=== PATIENT | male | born 1935 | race Caucasian/White ===

== ENCOUNTER 2016-06-16 11:02 | Emergency (ER) | payer MEDICARE, BC ==
[2016-06-16 12:01] VITALS: BP 139/66
--- NOTE | 2016-06-16 13:57 | EDM.PDOC ---
ED HISTORY OF PRESENT ILLNESS - General Chief Complaint: Respiratory Problem Stated Complaint: WEAKNESS,LOW ON O2 Time Seen by Provider: 06/16/16 11:43 Source of Information: Reports: Patient, RN notes reviewed - History of Present Illness INITIAL COMMENTS - FREE TEXT/NARRATIVE: 80 year old male brought in by daughter with concern about cough that he has had for about 1 week, somewhat worse yesterday and today. Productive of mostly clear phlegm. Has had nasal and sinus congestion. No fever, possible chills. More weak and dizzy this AM than usual. No vomiting or diarrhea. Hx of renal failure on dialysis. His last run was 3 days ago. He was due for run at time of eval. - Related Data Allergies/ADRs: Allergies Allergy/AdvReac Type Severity Reaction Status Date / Time cefatrizine [Cefatrizine] Allergy Hives Verified 06/16/16 11:38 ceftriaxone sodium Allergy Hives Verified 06/16/16 11:38 [From Rocephin] prednisone Allergy Swelling Verified 06/16/16 11:38 Home Meds: Home Meds Albuterol Sulfate [Proair Respiclick] 2 puff INH Q4HR PRN 03/21/15 [History] Atenolol 50 mg PO DAILY 03/21/15 [History] Budesonide/Formoterol [Symbicort 160-4.5 MCG] 2 puff INH BID 03/21/15 [History] Furosemide 80 mg PO DAILY 03/21/15 [History] Simvastatin [Zocor] 40 mg PO BEDTIME 03/21/15 [History] Tamsulosin [Flomax] 0.4 mg PO DAILY 03/21/15 [History] Tiotropium [Spiriva HandiHaler] 1 cap INH DAILY 03/21/15 [History] Topiramate [Topamax] 50 mg PO BID 03/21/15 [History] amLODIPine [Norvasc] 2.5 mg PO BEDTIME 03/21/15 [History] cloNIDine [Catapres] 0.1 mg PO BID 03/21/15 [History] Ascorbic Acid [Vitamin C] 500 mg PO DAILY 05/25/15 [History] Calcium Carbonate/Vitamin D3 [Calcium 500 + Vit D 400] 1 tab PO TID 05/25/15 [ History] Cholecalciferol (Vitamin D3) [Vitamin D3] 1,000 units PO DAILY 05/25/15 [History ] Multivitamin [Multi-Day Vitamins] 1 each PO DAILY 05/25/15 [History] Niacin [Niacin ER] 500 mg PO DAILY 05/25/15 [History] Venlafaxine [Effexor XR] 37.5 mg PO DAILY 10/31/15 [History] Calcium Acetate 2 tab PO TID 03/28/16 [History] Dicyclomine HCl [Bentyl] 10 mg PO TID 03/28/16 [History] Finasteride 1 tab PO DAILY 03/28/16 [History] Fish Oil/DHA/EPA [Fish Oil 1,200 MG] 1 cap PO DAILY 03/28/16 [History] Furosemide [Lasix] 1 tab PO DAILY PRN 03/28/16 [History] Lactobacillus Acidophilus [Acidophilus Lactobacillus] 1 cap PO DAILY 03/28/16 [ History] Tobramycin Sulf/Dexamethasone [IJP: Tobradex Ophth Susp] 1 drop EYEBOTH BEDTIME PRN 03/28/16 [History] Warfarin [Coumadin] 5 mg PO DAILY 03/28/16 [History] Omeprazole 20 mg PO DAILY 03/31/16 [History] Levofloxacin [Levaquin] 500 mg PO Q24H #7 tablet 06/16/16 [Rx] Past Medical History HEENT History: Reports: Allergic rhinitis, Cataract Other HEENT History: poor vision Cardiovascular History: Reports: High cholesterol, Hypertension Respiratory History: Reports: COPD, Sleep apnea Gastrointestinal History: Reports: GERD Genitourinary History: Reports: Dialysis, Prostate disorder, Renal disease Musculoskeletal History: Reports: Arthritis Neurological History: Reports: TIA Psychiatric History: Reports: Addiction, Depression, Other (see below) Other Psychiatric History: ETOH abuse Endocrine/Metabolic History: Reports: Diabetes, type II Hematologic History: Reports: Anemia, Other (see below) Other Hematologic History: blood clotting disorder Oncologic (Cancer) History: Reports: Lung, Prostate - Past Surgical History HEENT Surgical History: Reports: Cataract surgery, Naso-sinus surgery Musculoskeletal Surgical History: Reports: Arthroscopic knee Social & Family History - Family History Endocrine/Metabolic: Reports: Diabetes, type II Oncologic: Reports: Colon, Prostate - Tobacco Use Smoking Status *Q: Current Some Day Smoker Years of Tobacco use: 65 Packs/Tins Daily: 2 Used Tobacco, but Quit: Yes Month Tobacco Last Used: apr 2015 - Caffeine Use Caffeine Use: Reports: Coffee - Recreational Drug Use Recreational Drug Use: No ED ROS GENERAL - Review of Systems Review Of Systems: See Below Constitutional: Reports: chills. Denies: fever HEENT: Reports: Rhinitis, Sinus problem (sinsus drainage) Respiratory: Reports: Shortness of Breath, Cough, Sputum Cardiovascular: Denies: Chest pain Endocrine: Reports: fatigue GI/Abdominal: Denies: Abdominal pain, Nausea, Vomiting Musculoskeletal: Reports: back pain (chronically), muscle stiffness Neurological: Reports: Weakness (generalized). Denies: Headache, Trouble Speaking ED EXAM, GENERAL - Physical Exam Exam: See Below General Appearance: alert, no apparent distress Eye Exam: bilateral eye: PERRL Nose: normal inspection Throat/Mouth: Normal inspection, Normal oropharynx Head: No: facial swelling Neck: supple, full range of motion, other (no JVD) Respiratory/Chest: no respiratory distress. No: rales, rhonchi, wheezing, accessory muscle use Cardiovascular: regular rate, rhythm GI/Abdominal: soft, non tender. No: guarding Back Exam: No: CVA tenderness (L), CVA tenderness (R) Extremities: No: pedal edema, leg pain, increased warmth, redness Neurological: alert, oriented, no motor/sensory deficits Skin Exam: Warm, Dry, Normal color Course - Vital Signs Last Recorded V/S: Last Vital Signs Temp 97.8 F 06/16/16 11:50 Pulse 78 06/16/16 11:50 Resp 20 06/16/16 11:50 BP 139/66 06/16/16 11:50 Pulse Ox 91 L 06/16/16 11:50 - Orders/Labs/Meds Orders: Active Orders 24 hr Category Date Time Status CULTURE BLOOD [BC] Stat Lab 06/16/16 12:45 Received Labs: Laboratory Tests 06/16/16 06/16/16 06/16/16 Range/Units 12:45 12:45 12:45 WBC 9.20 H (4.23-9.07) K/mm3 RBC 2.75 L (4.63-6.08) M/mm3 Hgb 9.7 L (13.7-17.5) gm/L Hct 29.7 L (40.1-51.0) % MCV 108.0 H (79.0-92.2) fl MCH 35.3 H (25.7-32.2) pg MCHC 32.7 (32.2-35.5) g/dl RDW Std Deviation 65.7 H (35.1-43.9) fL Plt Count 189 (163-337) K/mm3 MPV 8.2 L (9.4-12.3) fl Neut % (Auto) 74.2 H (34.0-67.9) % Lymph % (Auto) 12.5 L (21.8-53.1) % [place] % (Auto) 8.8 (5.3-12.2) % Eos % (Auto) 3.9 (0.8-7.0) Baso % (Auto) 0.4 (0.1-1.2) % Neut # (Auto) 6.82 H (1.78-5.38) K/mm3 Lymph # (Auto) 1.15 L (1.32-3.57) K/mm3 [place] # (Auto) 0.81 (0.30-0.82) K/mm3 Eos # (Auto) 0.36 (0.04-0.54) K/mm3 Baso # (Auto) 0.04 (0.01-0.08) K/mm3 Manual Slide Review Abnormal smear Sodium 139 (136-145) mEq/L Potassium 4.0 (3.5-5.1) mEq/L Chloride 101 (98-107) mEq/L Carbon Dioxide 23 (21-32) mEq/L Anion Gap 19.0 H (5-15) BUN 60 H (7-18) mg/dL Creatinine 8.7 H (0.7-1.3) mg/dL Est Cr Clr Drug Dosing 7.31 mL/min Estimated GFR (MDRD) 6 (>60) mL/min BUN/Creatinine Ratio 6.9 L (14-18) Glucose 214 H (83-115) mg/dL Calcium 9.5 (8.5-10.1) mg/dL Total Bilirubin 0.2 (0.2-1.0) mg/dL AST 5 L (15-37) U/L ALT 11 L (16-63) U/L Alkaline Phosphatase 49 (46-116) U/L Troponin I < 0.017 (0.00-0.056) ng/mL C-Reactive Protein 4.0 H* (<1.0) mg/dL B-Natriuretic Peptide 271 H (0-100) pg/mL Total Protein 6.7 (6.4-8.2) g/dl Albumin 3.3 L (3.4-5.0) g/dl Globulin 3.4 gm/dL Albumin/Globulin Ratio 1.0 (1-2) - Re-Assessments/Exams Free Text/Narrative Re-Assessment/Exam: 06/16/16 13:54 WBC just above 9,000, CRP 4.0, afebrile, he does have mild infiltrate R base, question early mild pneumonia vs atelectesis. Will send him for his dilalysis run now, awaiting Radiologist report, will probably let him go home on outpatient levaquin if he is well enough for that after dialysis. 06/16/16 15:22. Radiologist report on CXR indicates area of atelectesis R base , no Radiologist concern for pneumonia. Have prescribed levaquin 500 mg daily for 7 days. Discharge instr. as documented. Departure - Departure Time of Disposition: 14:44 Disposition: Home, Self-Care 01 Condition: fair Clinical Impression: Bronchitis Prescriptions: Levofloxacin [Levaquin] 500 mg PO Q24H #7 tablet Instructions: Acute Bronchitis Referrals: Jed Avitia MD [Primary Care Provider] - Forms: ED Department Discharge Additional Instructions: The Radiologist does not see any sign of Pneumonia on your CXR today. I do think we need to start you on levaquin antibiotic for bronchitis and to try keep this from turning into a pneumonia. Rest, start the levaquin today after your dialysis run. Continue that once daily for 7 days. Follow up with your regular medical provider in about 3 to 4 days for recheck if possible, call for appt. Return to ED if symptoms are worsening and you feel you may need to be in the hospital. - My Orders Last 24 Hours: My Active Orders 06/16/16 12:45 CULTURE BLOOD [BC] Stat - Assessment/Plan Last 24 Hours: My Active Orders 06/16/16 12:45 CULTURE BLOOD [BC] Stat
--- NOTE | 2016-06-16 14:15 | CR ---
Chest: Portable view of the chest was obtained. Comparison: Previous chest CT of 06/10/16 and chest x-ray of 06/13/15. Slight atelectasis noted within both lung bases. Scarring noted within the right upper lung. Lungs otherwise are clear. Emphysematous change is present. Heart size and mediastinum are within normal limits. Widening of the superior mediastinum is seen which is stable and due to tortuous great vessels. Impression: 1. Mild bibasilar atelectasis and emphysematous change. Nothing acute is identified. Diagnostic code #2
== END 2016-06-16 15:10 | disposition home or self-care (01) ==
LOC: JD.ED 11:02
DX: J40 Bronchitis, not specified as acute or chronic (principal); E78.00 Pure hypercholesterolemia, unspecified; J44.9 Chronic obstructive pulmonary disease, unspecified; K21.9 Gastro-esophageal reflux disease without esophagitis; I12.9 Hypertensive chronic kidney disease with stage 1 through stage 4 chronic kidney disease, or unspecified chronic kidney disease; N18.9 Chronic kidney disease, unspecified; F32.9 Major depressive disorder, single episode, unspecified; E11.9 Type 2 diabetes mellitus without complications; D64.9 Anemia, unspecified; D68.9 Coagulation defect, unspecified; F17.200 Nicotine dependence, unspecified, uncomplicated; Z85.46 Personal history of malignant neoplasm of prostate; Z85.118 Personal history of other malignant neoplasm of bronchus and lung; Z88.8 Allergy status to other drugs, medicaments and biological substances; Z79.899 Other long term (current) drug therapy; Z86.73 Personal history of transient ischemic attack (TIA), and cerebral infarction without residual deficits; Z99.2 Dependence on renal dialysis; R06.02 Shortness of breath
CPT/HCPCS: 36415; 71010; 71010-26; 80053; 83880; 84484; 85025; 86140; 87040; 87804; 99283; 99285

== ENCOUNTER 2016-06-29 19:42 | Emergency (ER) | payer MEDICARE, BC ==
[2016-06-29] MEDS ORDERED: HYDROmorphone 0.5 MG/0.5 ML Syringe IVPUSH ONE ×2 (20:03→22:10)
[2016-06-29] MEDS ORDERED: Metoclopramide 10 MG/2 ML SDV IVPUSH ONE (20:03)
--- NOTE | 2016-06-29 20:08 | EDM.PDOC ---
ED HPI GI/ABDOMINAL - General Chief Complaint: Abdominal Pain Stated Complaint: LOWER ABDOMINAL PAIN Time Seen by Provider: 06/29/16 20:03 Source of Information: Reports: Patient, Family (spouse) History Limitations: Reports: No limitations - History of Present Illness INITIAL COMMENTS - FREE TEXT/NARRATIVE: 80-year-old male presents the ED with gradually worsening left lower quadrant abdominal pain. First noted sharp steady intermittent left lower quadrant abdominal pain yesterday afternoon about 1530 hours. Since that time the pain is been coming more frequently and is now constant. It hurts to walk it hurts to cough it hurts to deep breathe. Appetite remains fair. No nausea vomiting. Bowel movement was normal today . He didn't recognize any blood in the stool. It did not relieve the pain either. He does have a history of diverticulitis. Has a history of previous renal colic as well. Pain is well localized to the left lower quadrant by the patient. He holds onto this area when he walks or coughs. No previous abdominal surgeries.Has had endovascular graft in his aorta and iliac arteries for aortic abdominal aneurysm . Symptom Onset Date: 06/28/16 Symptom Onset Time: 15:30 Timing/Duration: Reports: Hour(s):, Gradual onset Location: LLQ Quality: Reports: cramping, fullness, stabbing (Intermittently quite stabbing and sharp.) Severity: moderate (States at rest pain is a 5 but it can get up to a 10) Improves with: Reports: other ( minutes very sharp and stabbing. nothing seems to make a difference) Worsens with: Reports: sitting up, other (Coughing and deep breathing make it worse) Context: Denies: sick contact, bad/questionable food, out of country travel, recent surgery, recent trauma, lifting, activity/exercise, other Associated Symptoms: Reports: constipation, diarrhea (Had severe diarrhea about 3 weeks ago that took a week to get better.). 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: Other (see below) (No) - Related Data Allergies/ADRs: Allergies Allergy/AdvReac Type Severity Reaction Status Date / Time cefatrizine [Cefatrizine] Allergy Hives Verified 06/16/16 11:38 ceftriaxone sodium Allergy Hives Verified 06/16/16 11:38 [From Rocephin] prednisone Allergy Swelling Verified 06/16/16 11:38 Home Meds: Home Meds Albuterol Sulfate [Proair Respiclick] 2 puff INH Q4HR PRN 03/21/15 [History] Atenolol 50 mg PO DAILY 03/21/15 [History] Budesonide/Formoterol [Symbicort 160-4.5 MCG] 2 puff INH BID 03/21/15 [History] Simvastatin [Zocor] 40 mg PO BEDTIME 03/21/15 [History] Tamsulosin [Flomax] 0.4 mg PO BEDTIME 03/21/15 [History] Tiotropium [Spiriva HandiHaler] 1 cap INH DAILY 03/21/15 [History] Topiramate [Topamax] 50 mg PO BID 03/21/15 [History] amLODIPine [Norvasc] 2.5 mg PO BEDTIME 03/21/15 [History] cloNIDine [Catapres] 0.1 mg PO BID 03/21/15 [History] Ascorbic Acid [Vitamin C] 500 mg PO DAILY 05/25/15 [History] Calcium Carbonate/Vitamin D3 [Calcium 500 + Vit D 400] 1 tab PO TID 05/25/15 [ History] Cholecalciferol (Vitamin D3) [Vitamin D3] 1,000 units PO DAILY 05/25/15 [History ] Multivitamin [Multi-Day Vitamins] 1 each PO DAILY 05/25/15 [History] Niacin [Niacin ER] 500 mg PO BEDTIME 05/25/15 [History] Venlafaxine [Effexor XR] 37.5 mg PO DAILY 10/31/15 [History] Calcium Acetate 2 tab PO TID 03/28/16 [History] Dicyclomine HCl [Bentyl] 10 mg PO TID 03/28/16 [History] Finasteride 1 tab PO DAILY 03/28/16 [History] Fish Oil/DHA/EPA [Fish Oil 1,200 MG] 1,200 mg PO DAILY 03/28/16 [History] Furosemide [Lasix] 80 mg PO DAILY 03/28/16 [History] Lactobacillus Acidophilus [Acidophilus Lactobacillus] 1 cap PO DAILY 03/28/16 [ History] Warfarin [Coumadin] 5 mg PO DAILY 03/28/16 [History] Omeprazole 20 mg PO DAILY 03/31/16 [History] Albuterol Sulfate [Proair Hfa] 2 puff INH Q4H PRN 06/29/16 [History] Atrovent Nasal 2 spray INH BID PRN 06/29/16 [History] Calcium Acetate [PhosLo] 667 mg PO TID 06/29/16 [History] Darbepoetin Pieter in Polysorbat [Aranesp] 60 mcg INJECT Q28D 06/29/16 [History] Flaxseed 1 cap PO DAILY 06/29/16 [History] Vitamin B Complex 1 each PO DAILY 06/29/16 [History] Past Medical History HEENT History: Reports: Allergic rhinitis, Cataract, Macular degeneration Other HEENT History: poor vision Cardiovascular History: Reports: Heart murmur, High cholesterol, Hypertension, SOB on exertion Respiratory History: Reports: COPD, Sleep apnea (Does use a CPAP machine nightly.) Gastrointestinal History: Reports: Chronic diarrhea, GERD, Other (see below) ( Nonspecific colitis.) Genitourinary History: Reports: BPH, Chronic renal insuffiency (He has an AV fistula in place for dialysis but has not yet started dialysis.), Dialysis ( Goes to dialysis Wednesdays and Fridays since December last year.), Prostate disorder, Renal disease Musculoskeletal History: Reports: Arthritis, Back pain, chronic, Osteoarthritis Neurological History: Reports: TIA, Other (see below) (Lt sided subdural hematoma requiring surgical drainage. Lt parietal lobe.) Psychiatric History: Reports: Addiction, Depression, Other (see below) Other Psychiatric History: ETOH abuse Endocrine/Metabolic History: Reports: Diabetes, type II Hematologic History: Reports: Anemia, Other (see below) (Assessment multiple DVTs and pulmonary emboli. He states she's been on Coumadin for nearly 60 years. He also has an inferior vena caval filter.) Other Hematologic History: blood clotting disorder Oncologic (Cancer) History: Reports: Lung, Prostate - Past Surgical History HEENT Surgical History: Reports: Cataract surgery, Naso-sinus surgery Cardiovascular Surgical History: Reports: Vascular surgery (Endovascular procedure for abdominal aortic aneurysm about 3 years ago.) Musculoskeletal Surgical History: Reports: Arthroscopic knee, Hip replacement ( Lt), Knee replacement Social & Family History - Family History Endocrine/Metabolic: Reports: Diabetes, type II Oncologic: Reports: Colon, Prostate - Tobacco Use Smoking Status *Q: Current Every Day Smoker Years of Tobacco use: 65 Packs/Tins Daily: 0.5 Used Tobacco, but Quit: Yes Month Tobacco Last Used: apr 2015 - Caffeine Use Caffeine Use: Reports: Coffee - Recreational Drug Use Recreational Drug Use: No - Living Situation & Occupation Living situation: Reports: Occupation: retired ED [employer] GENERAL - Review of Systems Review Of Systems: See Below Constitutional: Denies: fever, chills, malaise, weakness, fatigue, decreased appetite, weight loss HEENT: Reports: Other Respiratory: Reports: Shortness of Breath (Has poor vision due to macular degeneration.), Wheezing (2 COPD. COPD. Not on home oxygen), Cough Cardiovascular: Reports: Blood pressure problem, Dyspnea on exertion (Sometimes in the lower extremities chronically), Edema. Denies: Chest pain, Claudication , Lightheadedness, Orthopnea Endocrine: Reports: fatigue, high glucose (Has type 2 diabetes.) GI/Abdominal: Reports: Abdominal pain (Left lower quadrant see history of present illness). Denies: Constipation, Diarrhea, Decreased appetite, Difficulty swallowing, Distension, Flatus, Hematemesis, Hematochezia, Melena, Mucous in stool, Nausea, Stool incontinence, Vomiting : Reports: frequency (Nocturia x3), other Musculoskeletal: Reports: back pain, joint pain Skin: Reports: no symptoms (Knees and hips and shoulders at times) Neurological: Reports: No Symptoms Psychiatric: Reports: Depression Hematologic/Lymphatic: Reports: no symptoms Immunologic: Reports: no symptoms ED EXAM, GI/ABD - Physical Exam Exam: See Below Exam Limited By: No limitations General Appearance: alert, WD/WN, no apparent distress Eyes: bilateral: normal appearance (No jaundice) Throat/Mouth: Normal inspection, Normal lips, Normal oropharynx Head: atraumatic, normocephalic, other (As a viral that is healed well over the left anterior parietal scalp.) Neck: normal inspection, supple, non-tender, full range of motion. No: lymphadenopathy (L), lymphadenopathy (R) Respiratory/Chest: no respiratory distress, lungs clear, normal breath sounds, no accessory muscle use Cardiovascular: regular rate, rhythm, no gallop, no JVD, no rub, systolic murmur (Grade 1-2 systolic ejection murmur at the left lower sternal border.) GI/Abdominal: normal bowel sounds, soft, tenderness (Well localized left lower quadrant of the distribution of the sigmoid colon. He is tender to palpation teeth and percussion in this area suggesting peritoneal irritation. He is guarding with mild rebound tenderness.), guarding, rebound. No: rigidity, hepatomegaly, splenomegaly, hernia, mass, McBurney's sign, psoas sign, obturator sign, Rovsing's sign, Llanes's sign, aortic pulsation Back Exam: normal inspection, full range of motion. No: CVA tenderness (L), CVA tenderness (R) Extremities: normal inspection, normal capillary refill, other (Has an AV fistula from his left volar wrist to the proximal forearm that has a palpable thrill. It is being used for dialysis for the last 6 months.) Neurological: alert (Decreased range of motion of both hips and knees due to arthritic changes.), oriented, CN II-XII intact, normal cognition Psychiatric: normal affect, normal mood Skin Exam: Warm, Dry, Intact, Normal color, No rash EKG INTERPRETATION EKG Date: 06/29/16 Time: 20:30 Rhythm: NSR Rate (beats/min): 74 Avery: LAD-left axis deviation (-27) P-wave: present (First-degree AV block) QRS: normal ST-T: normal QT: prolonged (Mildly prolonged.) Course - Vital Signs Last Recorded V/S: Last Vital Signs Temp 36.2 C 06/29/16 19:53 Pulse 68 06/29/16 19:53 Resp 20 06/29/16 19:53 BP 149/76 H 06/29/16 19:53 Pulse Ox 96 06/29/16 19:53 - Orders/Labs/Meds Orders: Active Orders 24 hr Category Date Time Status EKG Documentation Completion [RC] STAT Care 06/29/16 20:09 Active Abdomen 1V Flat [CR] Stat Exams 06/29/16 20:05 Taken Abdomen Pelvis wo Cont [CT] Stat Exams 06/29/16 20:19 Taken CULTURE BLOOD [BC] Stat Lab 06/29/16 20:18 Received CULTURE BLOOD [BC] Stat Lab 06/29/16 20:30 Received Sodium Chloride 0.9% [Normal Saline] 250 ml Med 06/29/16 20:15 Active IV ASDIRECTED Blood Culture x2 Reflex Set [OM.PC] Stat Oth 06/29/16 20:04 Ordered Medication Orders Sodium Chloride (Normal Saline) 250 mls @ 150 mls/hr IV ASDIRECTED BELKIS Last Admin: 06/29/16 20:29 Dose: 150 mls/hr Labs: Laboratory Tests 06/29/16 06/29/16 06/29/16 Range/Units 20:18 20:18 20:18 WBC 8.06 (4.23-9.07) K/mm3 RBC 2.89 L (4.63-6.08) M/mm3 Hgb 10.3 L (13.7-17.5) gm/L Hct 30.9 L (40.1-51.0) % MCV 106.9 H (79.0-92.2) fl MCH 35.6 H (25.7-32.2) pg MCHC 33.3 (32.2-35.5) g/dl RDW Std Deviation 60.3 H (35.1-43.9) fL Plt Count 217 (163-337) K/mm3 MPV 8.7 L (9.4-12.3) fl Neutrophils % (Manual) 71 H (40-60) % Band Neutrophils % 0 (0-10) % Lymphocytes % (Manual) 16 L (20-40) % Atypical Lymphs % 0 % Monocytes % (Manual) 6 (2-10) % Eosinophils % (Manual) 6 (0.8-7.0) % Basophils % (Manual) 1 (0.2-1.2) Platelet Estimate Adequate Anisocytosis 2+ moderate Macrocytosis 2+ moderate Ovalocytes 1+ slight PT (8.0-13.0) SECONDS INR Sodium 134 L (136-145) mEq/L Potassium 4.2 (3.5-5.1) mEq/L Chloride 97 L (98-107) mEq/L Carbon Dioxide 27 (21-32) mEq/L Anion Gap 14.2 (5-15) BUN 53 H (7-18) mg/dL Creatinine 7.9 H (0.7-1.3) mg/dL Est Cr Clr Drug Dosing 8.05 mL/min Estimated GFR (MDRD) 7 (>60) mL/min BUN/Creatinine Ratio 6.7 L (14-18) Glucose 167 H (83-115) mg/dL Calcium 10.1 (8.5-10.1) mg/dL Total Bilirubin 0.4 (0.2-1.0) mg/dL AST 25 (15-37) U/L ALT 14 L (16-63) U/L Alkaline Phosphatase 59 (46-116) U/L C-Reactive Protein 10.8 H* (<1.0) mg/dL B-Natriuretic Peptide 156 H (0-100) pg/mL Total Protein 7.2 (6.4-8.2) g/dl Albumin 3.2 L (3.4-5.0) g/dl Globulin 4.0 gm/dL Albumin/Globulin Ratio 0.8 L (1-2) Lipase 155 (73-393) U/L Urine Color (Yellow) Urine Appearance (Clear) Urine pH (5.0-8.0) Ur Specific [place] (1.005-1.030) Urine Protein (Negative) Urine Glucose (UA) (Negative) Urine Ketones (Negative) Urine Occult Blood (Negative) Urine Nitrite (Negative) Urine Bilirubin (Negative) Urine Urobilinogen (0.2-1.0) Ur Leukocyte Esterase (Negative) Urine RBC (0-5) /hpf Urine WBC (0-5) /hpf Ur Epithelial Cells Ur Squamous Epith Cells (0-5) /hpf Urine Bacteria (FEW) /hpf Urine Mucus (FEW) /hpf 06/29/16 06/29/16 Range/Units 20:18 22:15 WBC (4.23-9.07) K/mm3 RBC (4.63-6.08) M/mm3 Hgb (13.7-17.5) gm/L Hct (40.1-51.0) % MCV (79.0-92.2) fl MCH (25.7-32.2) pg MCHC (32.2-35.5) g/dl RDW Std Deviation (35.1-43.9) fL Plt Count (163-337) K/mm3 MPV (9.4-12.3) fl Neutrophils % (Manual) (40-60) % Band Neutrophils % (0-10) % Lymphocytes % (Manual) (20-40) % Atypical Lymphs % % Monocytes % (Manual) (2-10) % Eosinophils % (Manual) (0.8-7.0) % Basophils % (Manual) (0.2-1.2) Platelet Estimate Anisocytosis Macrocytosis Ovalocytes PT 19.9 H (8.0-13.0) SECONDS INR 1.76 Sodium (136-145) mEq/L Potassium (3.5-5.1) mEq/L Chloride (98-107) mEq/L Carbon Dioxide (21-32) mEq/L Anion Gap (5-15) BUN (7-18) mg/dL Creatinine (0.7-1.3) mg/dL Est Cr Clr Drug Dosing mL/min Estimated GFR (MDRD) (>60) mL/min BUN/Creatinine Ratio (14-18) Glucose (83-115) mg/dL Calcium (8.5-10.1) mg/dL Total Bilirubin (0.2-1.0) mg/dL AST (15-37) U/L ALT (16-63) U/L Alkaline Phosphatase (46-116) U/L C-Reactive Protein (<1.0) mg/dL B-Natriuretic Peptide (0-100) pg/mL Total Protein (6.4-8.2) g/dl Albumin (3.4-5.0) g/dl Globulin gm/dL Albumin/Globulin Ratio (1-2) Lipase (73-393) U/L Urine Color Yellow (Yellow) Urine Appearance Clear (Clear) Urine pH 7.5 (5.0-8.0) Ur Specific [place] 1.020 (1.005-1.030) Urine Protein 3+ H (Negative) Urine Glucose (UA) 1+ H (Negative) Urine Ketones Negative (Negative) Urine Occult Blood Trace-lysed H (Negative) Urine Nitrite Negative (Negative) Urine Bilirubin Negative (Negative) Urine Urobilinogen 0.2 (0.2-1.0) Ur Leukocyte Esterase Negative (Negative) Urine RBC 0-5 (0-5) /hpf Urine WBC 5-10 H (0-5) /hpf Ur Epithelial Cells Not Reportable Ur Squamous Epith Cells 0-5 (0-5) /hpf Urine Bacteria Rare (FEW) /hpf Urine Mucus Not seen (FEW) /hpf Meds: Medications Generic Name Dose Route Start Last Admin Trade Name Freq PRN Reason Stop Dose Admin Sodium Chloride 250 mls @ 150 mls/hr 06/29/16 20:15 06/29/16 20:29 Normal Saline IV 150 mls/hr ASDIRECTED BELKIS Administration Discontinued Medications Generic Name Dose Route Start Last Admin Trade Name Lo PRN Reason Stop Dose Admin Diatrizoate Meglum/Diatrizoate Sod 120 ml 06/29/16 20:30 06/29/16 22:01 Gastrografin 37% PO 06/29/16 20:31 90 ml ONETIME ONE Administration Hydromorphone HCl 0.5 mg 06/29/16 20:03 06/29/16 20:33 Dilaudid IVPUSH 06/29/16 20:04 0.5 mg ONETIME ONE Administration Hydromorphone HCl 0.5 mg 06/29/16 22:10 06/29/16 22:15 Dilaudid IVPUSH 06/29/16 22:11 0.5 mg ONETIME ONE Administration Levofloxacin/Dextrose 250 mg/ 50 mls @ 50 mls/hr 06/29/16 22:14 06/29/16 22: 24 Premix IV 06/29/16 23:13 50 mls/hr ONETIME ONE Administration Metoclopramide HCl 10 mg 06/29/16 20:03 06/29/16 20:31 Reglan IVPUSH 06/29/16 20:04 10 mg ONETIME ONE Administration - Radiology Interpretation Free Text/Narrative:: 80-year-old male presents to the ER with gradually increasing left lower quadrant abdominal pain over the last 30 hours. Initially it was sharp and stabbing but now is constant and worsened by deep breathing coughing or sitting up. He is to walk real slow. Does have a history of diverticulitis in the past. History of renal colic in the past. 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 Has a vena caval filter as well. . The patient does have chronic left lower quadrant pain by looking at his old notes. Has a history of significant chronic diarrhea. Question whether this is malabsorption or medication induced. Examination suggests peritoneal signs in the left lower quadrant compatible with likely diverticulitis. Plan routine labs to include blood cultures x2. Will then have one view of the abdomen carried out and then plan is to give him oral contrast for CT abdomen. He cannot take IV contrast due to renal insufficiency stage IV. - Re-Assessments/Exams Free Text/Narrative Re-Assessment/Exam: 06/29/16 21:10 abdominal films show increased stool throughout both right and left hemicolon. There is no evidence of bowel obstruction. There is evidence of previous endovascular surgery involving the aorta and both iliac arteries. He also has a inferior vena cava filter but did not know about until questioning the patient once again. He has had multiple DVTs and PEs. States she's been on Coumadin for greater than 40 years. We'll start on oral contrast for CT of the abdomen and pelvis looking for diverticulitis. 06/29/16 21:18 lab work is back showing a normal white count at 8.06 with 71% neutrophils and no band cells. Hemoglobin is a little low at 10.3 likely due to chronic renal disease. MCV is elevated 106.9 again compatible with renal disease hematocrit is 30.9. Platelets 217,000. PT is 19.9 with an INR of 1.76 IE slightly subtherapeutic. Sodium is slightly low at 134 potassium normal 4.2 .bicarbonate is 27. Anion gap is 14.2. BUN elevated at 53 creatinine elevated at 7.9. EGFR is only 8. CRP is elevated at 10.8 lipase is normal at 155. He reports at present his pain is pretty well controlled. Will await CT of the abdomen. 06/29/16 22:16 CT scan of the abdomen and pelvis has been completed. The gallbladder is identified but is quite small in the elongated without evidence of stones. No obvious changes in the liver. Pancreas is mildly atrophic. He has bilateral severe polycystic kidney disease. There is 2.5 mm stone within the left renal parenchyma. I cannot find any obstruction of the ureters. He has extensive diverticula throughout the entire left hemicolon. There is an area of inflammation in the mid upper left hemicolon--proximal sigmoid-- with no free air or evidence of abscess formation. Patient will be started on Levaquin 250 mg IV due to his high creatinine at 7.3. He will this be followed by Flagyl 500 mg IV which has no limitations in terms of renal disease. He is requesting something more for analgesia and I will repeat Dilaudid 0.5 mg IV. 06/29/16 22:35 my plan is to have him admitted to the hospital for IV antibiotic therapy but since he is a dialysis patient and the current regulations are that all dialysis patients be transferred to [facility] for management. At present we have no ambulance personnel to provide transport the family is willing to take him to [facility] privately. Therefore once he has finished the IV Levaquin 250 mg IV his daughter is here and will call her with a view to taking him to [facility] in [facility] per private vehicle. 06/29/16 23:14 spoke with compliance and control analyst hospitalist, Dr. Bejarano at [facility] in these except the care of this patient. The family i.e. his daughter is willing to drive and to [facility] versus is waiting for another ambulance which will be another 4-5 hours. He will need Flagyl 500 mg intravenously once he gets to their institution. Daughter will go home and get his CPAP he seemed to take along with them. Departure - Departure Time of Disposition: 23:17 Disposition: DC/Tfer to Acute Hospital 02 Condition: fair Clinical Impression: Diverticulitis of sigmoid colon, Acute diverticulitis, Renal failure, Hemodialysis access, AV graft Forms: ED Department Discharge Additional Instructions: Patient transferred to [facility] per private vehicle since we are short of ambulance personnel this time. His daughter is willing to provide transport privately. Saline lock to be left in right arm. He has completed 2 to milligrams of Levaquin IV. He is being transferred because he is a hemodialysis patient. - My Orders Last 24 Hours: My Active Orders 06/29/16 20:04 Blood Culture x2 Reflex Set [OM.PC] Stat 06/29/16 20:05 Abdomen 1V Flat [CR] Stat 06/29/16 20:09 EKG Documentation Completion [RC] STAT 06/29/16 20:15 Sodium Chloride 0.9% [Normal Saline] 250 ml IV ASDIRECTED 06/29/16 20:18 CULTURE BLOOD [BC] Stat 06/29/16 20:19 Abdomen Pelvis wo Cont [CT] Stat 06/29/16 20:30 CULTURE BLOOD [BC] Stat - Assessment/Plan Last 24 Hours: My Active Orders 06/29/16 20:04 Blood Culture x2 Reflex Set [OM.PC] Stat 06/29/16 20:05 Abdomen 1V Flat [CR] Stat 06/29/16 20:09 EKG Documentation Completion [RC] STAT 06/29/16 20:15 Sodium Chloride 0.9% [Normal Saline] 250 ml IV ASDIRECTED 06/29/16 20:18 CULTURE BLOOD [BC] Stat 06/29/16 20:19 Abdomen Pelvis wo Cont [CT] Stat 06/29/16 20:30 CULTURE BLOOD [BC] Stat
[2016-06-29] MEDS ORDERED: Sodium Chloride 0.9% 250 ML IV SCH (20:15)
[2016-06-29] MEDS ORDERED: Diatrizoate Meglumine/Diatrizoate Sodium 37% 120 ML Bottle PO ONE (20:30)
[2016-06-29] MEDS ORDERED: Levofloxacin/Dextrose 5%-Water 250 MG in Premix Bag 1 BAG IV ONE (22:14)
[2016-06-29] MEDS ORDERED: Acetaminophen 325 MG Tab PO ONE (23:44)
[2016-06-30 00:03] VITALS: BP 131/73
--- NOTE | 2016-06-30 07:43 | CT ---
CT abdomen and pelvis Technique: Multiple axial sections were obtained from above the dome of the diaphragm inferiorly through the pubic symphysis. Oral contrast has been given. Intravenous contrast not utilized. Comparison: Previous CT abdomen and pelvis exam of 09/13/15. Findings: Slight atelectasis and minimal fibrosis noted within both lower lungs. Noncontrast appearance of the liver appears within normal limits. Spleen appears within normal limits. Adrenal glands show no nodule. Gallbladder is collapsed. Multiple renal cysts are seen. Hyperdense cyst is seen within the right kidney. Cysts are fairly stable from previous exam. Inferior vena cava filter is noted. Abdominal aortic aneurysm is seen which contains an aortoiliac stent. These findings are stable from prior exam. Appendix is seen which appears normal. No pelvic mass or adenopathy is seen. Artifact noted within the pelvis from left hip prosthesis. Sigmoid diverticuli are seen. Minimal inflammatory change seen around one of the sigmoid diverticula compatible with minimal diverticulosis. No abscess is seen. No free fluid is identified. Bone window settings were reviewed which show scattered degenerative change within the mid and lower lumbar spine. Impression: 1. Mild diverticulitis. No abscess is seen at this time. 2. Other incidental findings as noted above which appear fairly stable from prior CT exam. Diagnostic code #3 I agree with preliminary report issued by [employer] (preliminary report dictated on 06/29/16, 11:18 PM Central Time)
--- NOTE | 2016-06-30 12:07 | CR ---
Abdomen: Supine view of the abdomen was obtained. Comparison: Previous abdominal x-ray of 10/31/15. Aortoiliac stent is noted. Inferior vena cava filter is seen. Left hip prosthesis is noted. Bowel gas pattern is normal. Bony structures show slight degenerative change within the spine. Impression: 1. Incidental findings. Diagnostic code #2
== END 2016-06-29 23:35 ==
LOC: JD.ED 19:42
DX: K57.32 Diverticulitis of large intestine without perforation or abscess without bleeding (principal); I12.9 Hypertensive chronic kidney disease with stage 1 through stage 4 chronic kidney disease, or unspecified chronic kidney disease; E11.22 Type 2 diabetes mellitus with diabetic chronic kidney disease; N18.9 Chronic kidney disease, unspecified; D64.9 Anemia, unspecified; Z99.2 Dependence on renal dialysis; M19.90 Unspecified osteoarthritis, unspecified site; F41.9 Anxiety disorder, unspecified; F17.210 Nicotine dependence, cigarettes, uncomplicated; Z79.01 Long term (current) use of anticoagulants; Z86.73 Personal history of transient ischemic attack (TIA), and cerebral infarction without residual deficits; Z98.890 Other specified postprocedural states; Z96.642 Presence of left artificial hip joint; Z96.659 Presence of unspecified artificial knee joint; Z79.899 Other long term (current) drug therapy; Z88.1 Allergy status to other antibiotic agents; Z88.8 Allergy status to other drugs, medicaments and biological substances; Z85.46 Personal history of malignant neoplasm of prostate; Z85.118 Personal history of other malignant neoplasm of bronchus and lung; R06.02 Shortness of breath
CPT/HCPCS: 36415; 74000; 74176; 80053; 81001; 83690; 83880; 85025; 85610; 86140; 87040; 93005; 96361; 96365; 96375; 96376; 99285; J1170; J1956; J2765; J7050; Q9963

== ENCOUNTER 2017-02-11 12:46 | Emergency (ER) | payer MEDICARE, BC ==
[2017-02-11 13:02] VITALS: BP 124/73
--- NOTE | 2017-02-11 14:57 | EDM.PDOC ---
ED HPI GENERAL MEDICAL PROBLEM - General Chief Complaint: Genitourinary Problem Stated Complaint: Unable to urinate Time Seen by Provider: 02/11/17 13:00 Source of Information: Reports: Patient, RN Notes Reviewed History Limitations: Reports: No Limitations - History of Present Illness INITIAL COMMENTS - FREE TEXT/NARRATIVE: 81 year old male presents to the ER with complaints of inability to void for the past two weeks. He says he has been able to only void small amounts and "dribbles." He feels that he is having urinary retention. He's had problems in the past and they have straight cathed him and that usually takes care of it. He has an enlarged prostate and they recently increased his flomax to twice a day. He has no fever or chills. He has a cough which is chronic but seems to be worsening. He describes his sputum as thick and white. He is a dialysis patient and had dialysis yesterday. His baseline creatinine is around 5. His PCP is Dr. Avitia whom he sees every Thursday in dialysis. He has no nausea, vomiting, diarrhea , or constipation. He has no chest pain, SOB, or lower extremity edema. Bladder Pain Score (Numeric/FACES): 5 - Related Data Allergies Allergy/AdvReac Type Severity Reaction Status Date / Time cefatrizine [Cefatrizine] Allergy Hives Verified 02/11/17 12:59 ceftriaxone sodium Allergy Hives Verified 02/11/17 12:59 [From Rocephin] prednisone Allergy Swelling Verified 02/11/17 12:59 Home Meds: Home Meds Albuterol Sulfate [Proair Respiclick] 2 puff INH Q4HR PRN 03/21/15 [History] Atenolol 50 mg PO DAILY 03/21/15 [History] Budesonide/Formoterol [Symbicort 160-4.5 MCG] 2 puff INH BID 03/21/15 [History] Simvastatin [Zocor] 40 mg PO BEDTIME 03/21/15 [History] Tamsulosin [Flomax] 0.4 mg PO BEDTIME 03/21/15 [History] Tiotropium [Spiriva HandiHaler] 1 cap INH DAILY 03/21/15 [History] Topiramate [Topamax] 50 mg PO BID 03/21/15 [History] amLODIPine [Norvasc] 2.5 mg PO BEDTIME 03/21/15 [History] cloNIDine [Catapres] 0.1 mg PO BID 03/21/15 [History] Ascorbic Acid [Vitamin C] 500 mg PO DAILY 05/25/15 [History] Calcium Carbonate/Vitamin D3 [Calcium 500 + Vit D 400] 1 tab PO TID 05/25/15 [ History] Cholecalciferol (Vitamin D3) [Vitamin D3] 1,000 units PO DAILY 05/25/15 [History ] Multivitamin [Multi-Day Vitamins] 1 each PO DAILY 05/25/15 [History] Niacin [Niacin ER] 500 mg PO BEDTIME 05/25/15 [History] Venlafaxine [Effexor XR] 37.5 mg PO DAILY 10/31/15 [History] Calcium Acetate 2 tab PO TID 03/28/16 [History] Dicyclomine HCl [Bentyl] 10 mg PO TID 03/28/16 [History] Finasteride 1 tab PO DAILY 03/28/16 [History] Fish Oil/DHA/EPA [Fish Oil 1,200 MG] 1,200 mg PO DAILY 03/28/16 [History] Furosemide [Lasix] 80 mg PO DAILY 03/28/16 [History] Lactobacillus Acidophilus [Acidophilus Lactobacillus] 1 cap PO DAILY 03/28/16 [ History] Warfarin [Coumadin] 5 mg PO DAILY 03/28/16 [History] Omeprazole 20 mg PO DAILY 03/31/16 [History] Albuterol Sulfate [Proair Hfa] 2 puff INH Q4H PRN 06/29/16 [History] Atrovent Nasal 2 spray INH BID PRN 06/29/16 [History] Calcium Acetate [PhosLo] 667 mg PO TID 06/29/16 [History] Darbepoetin Pieter in [place]ysorbat [Aranesp] 60 mcg INJECT Q28D 06/29/16 [History] Flaxseed 1 cap PO DAILY 06/29/16 [History] Vitamin B Complex 1 each PO DAILY 06/29/16 [History] Past Medical History HEENT History: Reports: Allergic Rhinitis, Cataract, Macular Degeneration Other HEENT History: poor vision Cardiovascular History: Reports: Heart Murmur, High Cholesterol, Hypertension, SOB on Exertion Respiratory History: Reports: COPD, Sleep Apnea Gastrointestinal History: Reports: Chronic Diarrhea, GERD, Other (See Below) Genitourinary History: Reports: BPH, Chronic Renal Insuffiency, Dialysis, Prostate Disorder, Renal Disease Musculoskeletal History: Reports: Arthritis, Back Pain, Chronic, Osteoarthritis Neurological History: Reports: TIA, Other (See Below) Psychiatric History: Reports: Addiction, Depression, Other (See Below) Other Psychiatric History: ETOH abuse Endocrine/Metabolic History: Reports: Diabetes, Type II Hematologic History: Reports: Anemia, Other (See Below) Other Hematologic History: blood clotting disorder Oncologic (Cancer) History: Reports: Lung, Prostate - Past Surgical History HEENT Surgical History: Reports: Cataract Surgery, Naso-Sinus Surgery Cardiovascular Surgical History: Reports: Vascular Surgery GI Surgical History: Reports: Colonoscopy, Other (See Below) Musculoskeletal Surgical History: Reports: Arthroscopic Knee, Hip Replacement, Knee Replacement Social & Family History - Family History Endocrine/Metabolic: Reports: Diabetes, type II Oncologic: Reports: Colon, Prostate - Tobacco Use Smoking Status *Q: Current Every Day Smoker Years of Tobacco use: 65 Packs/Tins Daily: 0.5 Used Tobacco, but Quit: Yes Month Tobacco Last Used: apr 2015 - Caffeine Use Caffeine Use: Reports: Coffee - Recreational Drug Use Recreational Drug Use: No - Living Situation & Occupation Living situation: Reports: Occupation: Retired ED ROS GENERAL - Review of Systems Review Of Systems: See Below Constitutional: Denies: Fever, Chills, Diaphoresis Respiratory: Reports: Cough, Sputum. Denies: Shortness of Breath Cardiovascular: Denies: Chest Pain, Edema, Syncope GI/Abdominal: Reports: No Symptoms. Denies: Abdominal Pain, Constipation, Diarrhea, Nausea, Vomiting : Reports: Dysuria, Urinary Retention. Denies: Flank Pain Neurological: Reports: No Symptoms ED EXAM, RENAL/ - Physical Exam Exam: See Below Exam Limited By: No Limitations General Appearance: Alert, No Apparent Distress, Obese Respiratory/Chest: No Respiratory Distress, Lungs Clear, Normal Breath Sounds, No Accessory Muscle Use, Chest Non-Tender, Other (loose cough, sputum not visualized ) Cardiovascular: Normal Peripheral Pulses, Regular Rate, Rhythm, No Edema, No Murmur GI/Abdominal: Normal Bowel Sounds, Soft, Non-Tender, No Distention Back Exam: Normal Inspection, Full Range of Motion. No: CVA Tenderness (L), CVA Tenderness (R) Extremities: Normal Inspection, Normal Range of Motion, No Pedal Edema Neurological: Alert, Oriented, Normal Cognition Course - Vital Signs Last Recorded V/S: Last Vital Signs Temp 98.1 F 02/11/17 12:59 Pulse 81 02/11/17 12:59 Resp 24 H 02/11/17 12:59 BP 124/73 02/11/17 12:59 Pulse Ox 94 L 02/11/17 12:59 - Orders/Labs/Meds Orders: Active Orders 24 hr Category Date Time Status Bladder Scan [RC] ONETIME Care 02/11/17 13:13 Active Cardiac Monitoring [RC] . DIRECTED Care 02/11/17 13:14 Active Insert Urinary Catheter [OM.PC] Q24H Care 02/11/17 13:15 Ordered Urinary Catheter Assessment [RC] ASDIRECTED Care 02/11/17 13:14 Active CXR [Chest 2V] [CR] Stat Exams 02/11/17 13:12 Taken Labs: Laboratory Tests 02/11/17 02/11/17 02/11/17 Range/Units 13:25 13:35 13:35 WBC 8.19 (4.23-9.07) K/mm3 RBC 2.85 L (4.63-6.08) M/mm3 Hgb 10.3 L (13.7-17.5) gm/L Hct 31.7 L (40.1-51.0) % MCV 111.2 H (79.0-92.2) fl MCH 36.1 H (25.7-32.2) pg MCHC 32.5 (32.2-35.5) g/dl RDW Std Deviation 61.1 H (35.1-43.9) fL Plt Count 213 (163-337) K/mm3 MPV 8.2 L (9.4-12.3) fl Neutrophils % (Manual) 77 H (40-60) % Band Neutrophils % 0 (0-10) % Lymphocytes % (Manual) 12 L (20-40) % Atypical Lymphs % 0 % Monocytes % (Manual) 7 (2-10) % Eosinophils % (Manual) 2 (0.8-7.0) % Basophils % (Manual) 2 H (0.2-1.2) Platelet Estimate Adequate Plt Morphology Comment Normal Polychromasia 1+ slight Anisocytosis 1+ slight Macrocytosis 2+ moderate RBC Morph Comment Not Reportable Sodium 138 (136-145) mEq/L Potassium 4.0 (3.5-5.1) mEq/L Chloride 95 L (98-107) mEq/L Carbon Dioxide 31 (21-32) mEq/L Anion Gap 16.0 H (5-15) BUN 31 H (7-18) mg/dL Creatinine 6.1 H (0.7-1.3) mg/dL Est Cr Clr Drug Dosing 10.25 mL/min Estimated GFR (MDRD) 9 (>60) mL/min BUN/Creatinine Ratio 5.1 L (14-18) Glucose 164 H (83-115) mg/dL Calcium 10.0 (8.5-10.1) mg/dL Total Bilirubin 0.3 (0.2-1.0) mg/dL AST 10 L (15-37) U/L ALT 15 L (16-63) U/L Alkaline Phosphatase 75 (46-116) U/L Total Protein 7.0 (6.4-8.2) g/dl Albumin 3.3 L (3.4-5.0) g/dl Globulin 3.7 gm/dL Albumin/Globulin Ratio 0.9 L (1-2) Urine Color Yellow (Yellow) Urine Appearance Clear (Clear) Urine pH 8.5 H (5.0-8.0) Ur Specific [place] 1.020 (1.005-1.030) Urine Protein 3+ H (Negative) Urine Glucose (UA) 1+ H (Negative) Urine Ketones Negative (Negative) Urine Occult Blood 3+ H (Negative) Urine Nitrite Negative (Negative) Urine Bilirubin Negative (Negative) Urine Urobilinogen 0.2 (0.2-1.0) Ur Leukocyte Esterase Negative (Negative) Urine RBC 10-20 H (0-5) /hpf Urine WBC 0-5 (0-5) /hpf Ur Epithelial Cells Not seen (0-5) /hpf Urine Bacteria Few (FEW) /hpf Urine Mucus Few (FEW) /hpf - Re-Assessments/Exams Free Text/Narrative Re-Assessment/Exam: Bladder scan performed which showed 0 urine in bladder. Nursing staff then performed straight cath. They were able to successfully cath the patient but said the prostate was enlarged. They were able to drain 30ml of urine and sent for UA. The patient was later able to void another 15ml of urine. Chest x-ray obtained due to cough. No acute infiltrates or effusions appreciated. Mediastinum is normal. No bony abnormality. CBC reveals normal WBC with no bandemia. H&H is 10 and 31 which is stable from previous labs on file. CMP reveals Na 138, K 4.0, Cl 95, BUN 31, Creatinine 6.1, anion gap 16, glucose 164. UA is negative for infection. Patient and family member notified of results. Will discharge home. The patient' s symptoms are likely related to the high concentration of his urine. He was educated to f/u with Dr. Avitia on Thursday. He should return with any fever or worsening of symptoms. Discharge instructions as documented. Departure - Departure Time of Disposition: 14:56 Disposition: Home, Self-Care 01 Condition: Good Clinical Impression: Dysuria, Chronic cough Chronic renal failure Qualifiers: Chronic kidney disease stage: unspecified stage Qualified Code(s): N18.9 - Chronic kidney disease, unspecified - Discharge Information Instructions: Dysuria Referrals: Jed Avitia MD [Primary Care Provider] - Forms: ED Department Discharge Additional Instructions: Follow-up with Dr. Avitia on Thursday for recheck Return to ER with fever, or any new or worsening symptoms Continue your current medications as prescribed - My Orders Last 24 Hours: My Active Orders 02/11/17 13:12 CXR [Chest 2V] [CR] Stat 02/11/17 13:13 Bladder Scan [RC] ONETIME 02/11/17 13:14 Cardiac Monitoring [RC] . DIRECTED Urinary Catheter Assessment [RC] ASDIRECTED 02/11/17 13:15 Insert Urinary Catheter [OM.PC] Q24H - Assessment/Plan Last 24 Hours: My Active Orders 02/11/17 13:12 CXR [Chest 2V] [CR] Stat 02/11/17 13:13 Bladder Scan [RC] ONETIME 02/11/17 13:14 Cardiac Monitoring [RC] . DIRECTED Urinary Catheter Assessment [RC] ASDIRECTED 02/11/17 13:15 Insert Urinary Catheter [OM.PC] Q24H
--- NOTE | 2017-02-16 10:15 | CR ---
Chest: Two views of the chest were obtained. Comparison: Prior chest x-ray of 06/16/16. Slight atelectasis within the left lung base is seen. Mild scarring is noted within the right mid lung. Lung markings are mildly increased which appear to be stable. No acute infiltrates are seen. Lungs are hyperinflated compatible with emphysematous change. Bony structures appear within normal limits for the patient's age. Surgical clips are seen within the upper abdomen. Impression: 1. Emphysematous change and other chronic findings. Nothing acute is definitely appreciated. Diagnostic code #2
== END 2017-02-11 15:10 | disposition home or self-care (01) ==
LOC: JD.ED 12:46
DX: I12.9 Hypertensive chronic kidney disease with stage 1 through stage 4 chronic kidney disease, or unspecified chronic kidney disease (principal); N18.9 Chronic kidney disease, unspecified; R05 Cough; E11.22 Type 2 diabetes mellitus with diabetic chronic kidney disease; F17.210 Nicotine dependence, cigarettes, uncomplicated; Z88.8 Allergy status to other drugs, medicaments and biological substances; Z79.899 Other long term (current) drug therapy
CPT/HCPCS: 36415; 51701; 51798; 71020; 71020-26; 80053; 81001; 85025; 99284; 99284-25

== ENCOUNTER 2017-03-11 06:53 | Emergency (ER) | payer MEDICARE, BC ==
[2017-03-11] MEDS ORDERED: Ondansetron 4 MG/2 ML SDV IVPUSH ONE (07:58)
[2017-03-11] MEDS ORDERED: HYDROmorphone 1 MG/ML Syringe IVPUSH ONE ×2 (07:58→10:56)
[2017-03-11] MEDS ORDERED: Sodium Chloride 0.9% 1,000 ML IV SCH (08:00)
[2017-03-11] MEDS ORDERED: Iopamidol 612 MG/ML 100 ML Bottle IVPUSH ONE (08:17)
[2017-03-11] MEDS ORDERED: Diatrizoate Meglumine/Diatrizoate Sodium 37% 120 ML Bottle PO ONE (08:17)
[2017-03-11] MEDS: Sodium Chloride 0.9% 10 ML Syringe FLUSH PRN ×2 (08:24→09:11)
--- NOTE | 2017-03-11 08:32 | EDM.PDOC ---
ED HPI GENERAL MEDICAL PROBLEM - General Chief Complaint: Abdominal Pain Stated Complaint: RT SIDE PAIN Time Seen by Provider: 03/11/17 07:21 Source of Information: Reports: Patient, Family (Daughter) History Limitations: Reports: No Limitations - History of Present Illness INITIAL COMMENTS - FREE TEXT/NARRATIVE: The patient states that he developed sharp right lower quadrant abdominal pain this past Thursday, . It has been coming and going, but became constant and worse today. Pain is made worse with movement, such as with bumps in the road on his way to the ED, and with my jiggling his bed, but not with change in position. He also reports dysuria, urinary urgency, and urinary frequency. No recent fever. He has had nausea, but no emesis. No constipation. He reports watery diarrhea for the past 2 weeks. The patient's daughter states that the patient was diagnosed with prostatitis by Dr. Moscoso at the beginning of this month, and was prescribed a 6 week course of ciprofloxacin, which he is still on. The patient's daughter also states that the patient is on hemodialysis every Thursday, Thursday, and Thursday. He skipped his hemodialysis this past Thursday, , and is due for dialysis at 11:30 this morning. Right Lower Abdominal Pain Score (Numeric/FACES): 6 - Related Data Allergies Allergy/AdvReac Type Severity Reaction Status Date / Time cefatrizine [Cefatrizine] Allergy Hives Verified 03/11/17 09:02 ceftriaxone sodium Allergy Hives Verified 03/11/17 09:02 [From Rocephin] prednisone Allergy Swelling Verified 03/11/17 09:02 Home Meds: Home Meds Albuterol [IJD: Ventolin HFA] 2 puff INH Q4HR PRN 02/11/17 [History] Atenolol 50 mg PO DAILY 02/11/17 [History] Budesonide/Formoterol Fumarate [Symbicort 160-4.5 Mcg Inhaler] 2 puff IH BID [History] Dicyclomine [Bentyl] 10 mg PO TID 02/11/17 [History] Finasteride [Proscar] 5 mg PO DAILY 02/11/17 [History] Furosemide 80 mg PO DAILY 02/11/17 [History] Lactobacillus Acidophilus [Probiotic Acidophilus] 1 tab PO DAILY 02/11/17 [ History] Multivitamin [Multi-Vitamin Daily] 1 each PO DAILY 02/11/17 [History] Niacin 500 mg PO BEDTIME 02/11/17 [History] [place]-3/DHA/Epa/Fish Oil [[place] 3 500 Softgel] 1,200 mg PO DAILY 02/11/17 [ History] Omeprazole 20 mg PO DAILY 02/11/17 [History] Sevelamer Carbonate [Renvela] 1,600 mg PO TIDMEALS 02/11/17 [History] Simvastatin [Zocor] 40 mg PO BEDTIME 02/11/17 [History] Tamsulosin [Flomax] 0.4 mg PO BEDTIME 02/11/17 [History] Tiotropium [Spiriva HandiHaler] 18 mcg INH DAILY 02/11/17 [History] Topiramate [Topamax] 50 mg PO BID 02/11/17 [History] Venlafaxine [Effexor] 37.5 mg PO DAILY 02/11/17 [History] Vitamin B Complex 1 each PO DAILY 02/11/17 [History] Warfarin [Coumadin] 5 mg PO DAILY 02/11/17 [History] cloNIDine HCl [Catapres] 0.1 mg PO BID 02/11/17 [History] Ciprofloxacin HCl [Cipro] 250 mg PO DAILY 03/11/17 [History] Darbepoetin Pieter in Polysorbat [Aranesp] 60 mcg IV ASDIRECTED 03/11/17 [History] Flaxseed/Omega3,6,9/Fatty Acid [Flax Seed Oil 1,300 mg Softgel] 1,200 mg PO DAILY 03/11/17 [History] Past Medical History HEENT History: Reports: Allergic Rhinitis, Cataract, Macular Degeneration Other HEENT History: poor vision Cardiovascular History: Reports: Heart Murmur, High Cholesterol, Hypertension, SOB on Exertion Respiratory History: Reports: COPD, Sleep Apnea Gastrointestinal History: Reports: Chronic Diarrhea, GERD, Other (See Below) Genitourinary History: Reports: BPH, Chronic Renal Insuffiency, Dialysis, Prostate Disorder, Renal Disease Musculoskeletal History: Reports: Arthritis, Back Pain, Chronic, Osteoarthritis Neurological History: Reports: TIA, Other (See Below) Psychiatric History: Reports: Addiction, Depression, Other (See Below) Other Psychiatric History: ETOH abuse Endocrine/Metabolic History: Reports: Diabetes, Type II Hematologic History: Reports: Anemia, Other (See Below) Other Hematologic History: blood clotting disorder Oncologic (Cancer) History: Reports: Lung, Prostate - Past Surgical History HEENT Surgical History: Reports: Cataract Surgery, Naso-Sinus Surgery Cardiovascular Surgical History: Reports: Vascular Surgery GI Surgical History: Reports: Colonoscopy, Other (See Below) Musculoskeletal Surgical History: Reports: Arthroscopic Knee, Hip Replacement, Knee Replacement Social & Family History - Family History Endocrine/Metabolic: Reports: Diabetes, type II Oncologic: Reports: Colon, Prostate - Tobacco Use Smoking Status *Q: Current Every Day Smoker Years of Tobacco use: 65 Packs/Tins Daily: 0.5 Used Tobacco, but Quit: Yes Month Tobacco Last Used: apr 2015 Second Hand Smoke Exposure: No - Caffeine Use Caffeine Use: Reports: Coffee - Recreational Drug Use Recreational Drug Use: No - Living Situation & Occupation Living situation: Reports: Occupation: Retired ED ROS GENERAL - Review of Systems Review Of Systems: See Below Constitutional: Reports: No Symptoms. Denies: Fever HEENT: Reports: No Symptoms Respiratory: Reports: No Symptoms Cardiovascular: Reports: No Symptoms Endocrine: Reports: No Symptoms GI/Abdominal: Reports: Abdominal Pain (as per the HPI), Diarrhea (as per the HPI ), Nausea (as per the HPI). Denies: Vomiting : Reports: Dysuria (as per the HPI), Frequency (as per the HPI), Urgency (as per the HPI) Musculoskeletal: Reports: No Symptoms Skin: Reports: No Symptoms Neurological: Reports: No Symptoms Psychiatric: Reports: No Symptoms Hematologic/Lymphatic: Reports: No Symptoms Immunologic: Reports: No Symptoms ED EXAM, GI/ABD - Physical Exam Exam: See Below Exam Limited By: No Limitations General Appearance: Alert, WD/WN, Mild Distress (Appears uncomfortable) Eyes: Bilateral: Normal Appearance, EOMI Ears: Normal External Exam, Hearing Grossly Normal Nose: Normal Inspection, No Blood Throat/Mouth: Normal Inspection, Normal Lips, Normal Voice, No Airway Compromise Head: Atraumatic, Normocephalic Neck: Normal Inspection, Full Range of Motion Respiratory/Chest: No Respiratory Distress, No Accessory Muscle Use, Rhonchi ( throughout bilateral lung shen). No: Crackles, Wheezing Cardiovascular: Normal Peripheral Pulses, Regular Rate, Rhythm, No Gallop, No JVD, No Murmur, No Rub GI/Abdominal Exam: Normal Bowel Sounds, Soft, No Organomegaly, No Distention, No Abnormal Bruit, No Mass, Pelvis Stable, Tender (Right lower quadrant only. Nontender elsewhere, however, Rovsing sign present), Other (Obese) (Male) Exam: Deferred Rectal (Males) Exam: Deferred Back Exam: Normal Inspection, Full Range of Motion. No: CVA Tenderness (L) ( pain induced in the right lower quadrant with percussion), CVA Tenderness (R) ( pain induced in the right lower quadrant with percussion) Extremities: Normal Inspection, Normal Range of Motion, Normal Capillary Refill , Other (1+ pitting pretibial edema on the right only. None on the left.) Neurological: Alert, Oriented, Normal Cognition, No Motor/Sensory Deficits Psychiatric: Normal Affect Skin Exam: Warm, Dry, Intact, Normal Color, No Rash Course - Vital Signs Last Recorded V/S: Last Vital Signs Temp 36.2 C 03/11/17 11:20 Pulse 77 03/11/17 11:20 Resp 20 03/11/17 11:20 BP 161/83 H 03/11/17 11:20 Pulse Ox 91 L 03/11/17 11:20 - Orders/Labs/Meds Orders: Active Orders 24 hr Category Date Time Status Sodium Chloride 0.9% [Normal Saline] 1,000 ml Med 03/11/17 08:00 Active IV ASDIRECTED Medication Orders Sodium Chloride (Normal Saline) 1,000 mls @ 100 mls/hr IV ASDIRECTED BELKIS Last Admin: 03/11/17 08:24 Dose: 100 mls/hr Labs: Laboratory Tests 03/11/17 03/11/17 03/11/17 Range/Units 07:45 07:45 07:52 WBC 11.62 H (4.23-9.07) K/mm3 RBC 2.64 L (4.63-6.08) M/mm3 Hgb 9.5 L (13.7-17.5) gm/L Hct 28.6 L (40.1-51.0) % MCV 108.3 H (79.0-92.2) fl MCH 36.0 H (25.7-32.2) pg MCHC 33.2 (32.2-35.5) g/dl RDW Std Deviation 59.4 H (35.1-43.9) fL Plt Count 190 (163-337) K/mm3 MPV 7.9 L (9.4-12.3) fl Neutrophils % (Manual) 74 H (40-60) % Band Neutrophils % 0 (0-10) % Lymphocytes % (Manual) 16 L (20-40) % Atypical Lymphs % 0 % Monocytes % (Manual) 8 (2-10) % Eosinophils % (Manual) 2 (0.8-7.0) % Basophils % (Manual) 0 L (0.2-1.2) Hypersegmented Neuts Few Platelet Estimate Adequate Anisocytosis 1+ slight Macrocytosis 1+ slight RBC Morph Comment Not Reportable Sodium 133 L (136-145) mEq/L Potassium 6.8 H* (3.5-5.1) mEq/L Chloride 95 L (98-107) mEq/L Carbon Dioxide 21 (21-32) mEq/L Anion Gap 23.8 H (5-15) BUN 92 H (7-18) mg/dL Creatinine 13.0 H (0.7-1.3) mg/dL Est Cr Clr Drug Dosing 4.81 mL/min Estimated GFR (MDRD) 4 (>60) mL/min BUN/Creatinine Ratio 7.1 L (14-18) Glucose 165 H (83-115) mg/dL Calcium 9.9 (8.5-10.1) mg/dL Total Bilirubin 0.4 (0.2-1.0) mg/dL AST 7 L (15-37) U/L ALT 12 L (16-63) U/L Alkaline Phosphatase 60 (46-116) U/L Total Protein 6.9 (6.4-8.2) g/dl Albumin 3.3 L (3.4-5.0) g/dl Globulin 3.6 gm/dL Albumin/Globulin Ratio 0.9 L (1-2) Lipase 168 (73-393) U/L Urine Color [place] H (Yellow) Urine Appearance Clear (Clear) Urine pH 8.0 (5.0-8.0) Ur Specific [place] 1.025 (1.005-1.030) Urine Protein 3+ H (Negative) Urine Glucose (UA) 1+ H (Negative) Urine Ketones Negative (Negative) Urine Occult Blood 3+ H (Negative) Urine Nitrite Negative (Negative) Urine Bilirubin Negative (Negative) Urine Urobilinogen 0.2 (0.2-1.0) Ur Leukocyte Esterase Negative (Negative) Urine RBC 20-30 H (0-5) /hpf Urine WBC 0-5 (0-5) /hpf Ur Epithelial Cells 0-5 (0-5) /hpf Urine Bacteria Few (FEW) /hpf Urine Mucus Not seen (FEW) /hpf Meds: Medications Generic Name Dose Route Start Last Admin Trade Name Lo PRN Reason Stop Dose Admin Sodium Chloride 1,000 mls @ 100 mls/hr 03/11/17 08:00 03/11/17 08:24 Normal Saline IV 100 mls/hr ASDIRECTED BELKIS Administration Discontinued Medications Generic Name Dose Route Start Last Admin Trade Name Lo PRN Reason Stop Dose Admin Calcium Gluconate 1 gm 03/11/17 08:53 03/11/17 09:59 Calcium Gluconate IVPUSH 03/11/17 08:54 1 gm ONETIME ONE Administration Dextrose/Water 50 ml 03/11/17 09:05 03/11/17 10:31 Dextrose 50% In Water IVPUSH 03/11/17 09:06 50 ml ONETIME STA Administration Diatrizoate Meglum/Diatrizoate Sod 120 ml 03/11/17 08:17 03/11/17 09:11 Gastrografin 37% PO 03/11/17 08:18 90 ml ONETIME ONE Administration Hydromorphone HCl 1 mg 03/11/17 07:58 03/11/17 08:14 Dilaudid IVPUSH 03/11/17 07:59 1 mg ONETIME ONE Administration Hydromorphone HCl 1 mg 03/11/17 10:56 03/11/17 11:20 Dilaudid IVPUSH 03/11/17 10:57 1 mg ONETIME ONE Administration Dextrose/Water 500 mls @ 999 mls/hr 03/11/17 09:00 Dextrose 5% In Water IV ASDIRECTED BELKIS Sodium Bicarbonate 50 meq/ 550 mls @ 1,100 mls/hr 03/11/17 10:00 03/11/17 10: 23 Dextrose/Water IV 03/11/17 10:29 1,100 mls/hr ONETIME ONE Administration Insulin Human Regular 10 unit 03/11/17 09:05 03/11/17 10:26 Humulin R SUBCUT 03/11/17 09:06 10 units ONETIME STA Administration Protocol Iopamidol 100 ml 03/11/17 08:17 03/11/17 09:11 Isovue-300 (61%) IVPUSH 03/11/17 08:18 70 ml ONETIME ONE Administration Ondansetron HCl 4 mg 03/11/17 07:58 03/11/17 08:18 Zofran IVPUSH 03/11/17 07:59 4 mg ONETIME ONE Administration Sodium Bicarbonate 50 meq 03/11/17 09:03 03/11/17 10:37 Sodium Bicarbonate 8.4% IVPUSH 03/11/17 09:04 Not Given ONETIME STA Sodium Chloride 10 ml 03/11/17 08:17 03/11/17 09:11 Saline Flush FLUSH 10 ml ONETIME PRN Administration IV FLUSH Sodium Polystyrene Sulfonate 15 gm 03/11/17 09:07 03/11/17 10:36 Kayexalate PO 03/11/17 09:08 15 gm ONETIME ONE Administration - Re-Assessments/Exams Free Text/Narrative Re-Assessment/Exam: 03/11/17 08:07 The patient has severe right lower quadrant pain and tenderness, with Rovsing sign. He reported that bumps in the road caused pain on his ride to the ED, and even mild jiggling of the bed induced pain. Clinically, I am most concerned about acute appendicitis, although other etiologies for his pain could exist. The patient requires a CT scan with oral and IV contrast in order to properly evaluate for this, however, the patient is in renal failure, on hemodialysis. According to the patient's daughter, there is no hope for recovery of the patient's kidneys, therefore iodinated contrast is not contraindicated. I have instructed radiology to proceed with the CT scan regardless of the patient's creatinine. 03/11/17 09:09 The patient's potassium has returned significantly elevated at 6.8. I have discontinued the patient's normal saline and ordered 500 ml D5W with 1 amp of sodium bicarbonate, to be given over half an hour. I have ordered 1 g of IV calcium gluconate, 10 units of regular insulin, 1 amp of D50, and 15 g of oral Kayexalate. 03/11/17 10:15 CT of the abdomen and pelvis with oral and IV contrast is read by Dr. Rojas as: 1. Incidental findings as noted above. No findings of appendicitis. 2. Dilated right ureter down to the bladder. Questionable soft tissue mass within the bladder at the UVJ possibly being the etiology of the right sided ureteral dilatation. These findings are an interval change from prior CT exam. Cystoscopy is recommended to further evaluate. 3. Other incidental findings as noted above. 03/11/17 10:21 Test results discussed with the patient and his daughter. The patient is due for hemodialysis at 11:30 this morning, and given his hyperkalemia, I believe it important that he keep that appointment, however, I will contact the patient' s Urologist, Dr. Jeremy Moscoso, to see if the cystoscopy recommended by radiology should be done today, in which case we would transfer the patient to [place], or if it can be done as an outpatient later in the week, in which case we would discharge the patient home with pain medication. 03/11/17 10:[address] Moscoso is unavailable until 03/26/2015. Dr. Harvey is covering for him. We attempted to reach Dr. Harvey, however, we are informed that he has just scrubbed into the OR, and will not be available for another half an hour. 03/11/17 12:16 Dr. Harvey called back at 12:13. He does not feel that there is a surgical emergency. He feels that the patient could be discharged home on oral pain medication, then follow-up in the clinic, however, if the patient's pain is not able to be controlled with oral medication, then a he recommends transferred to [place], to be admitted to the Hospitalist. 03/11/17 13:51 I went over to outpatient hemodialysis and talked to the patient. Unfortunately , his daughter has gone home. I asked the patient if he would prefer to go home on oral pain medication, or if he would prefer to be transferred to [place]. The patient was very noncommittal, stating "I don't know". He stated that he would prefer to stay here. I explained to him that that would not be possible, as we do not have Urology at this facility. The patient rates his current pain as a "9", although he was napping and appears to be comfortable. The hemodialysis nurse noted that it took 2 people to get the patient off the gurney into the hemodialysis chair, and since the patient lives at assisted living, it is likely best if he is transferred to [place]. The patient did not object to being transferred to [place]. 03/11/17 14:[address] Leonardo, Hospitalist at [facility], at 14:11. He accepts the patient for transfer to their facility. The patient will go by ground ambulance after his hemodialysis has finished. Departure - Departure Time of Disposition: 14:16 Disposition: DC/Tfer to [facility] 02 Condition: Fair Clinical Impression: Bladder mass, Hydroureter on right, Hyperkalemia, End-stage renal disease needing dialysis - Discharge Information - My Orders Last 24 Hours: My Active Orders 03/11/17 08:00 Sodium Chloride 0.9% [Normal Saline] 1,000 ml IV ASDIRECTED - Assessment/Plan Last 24 Hours: My Active Orders 03/11/17 08:00 Sodium Chloride 0.9% [Normal Saline] 1,000 ml IV ASDIRECTED
[2017-03-11] MEDS ORDERED: Calcium Gluconate 10% 1 GM/10 ML SDV IVPUSH ONE (08:53)
[2017-03-11] MEDS ORDERED: Dextrose 5% in Water 500 ML IV SCH (09:00)
[2017-03-11] MEDS ORDERED: Sodium Bicarbonate 8.4% 50 MEQ/50 ML Syringe IVPUSH STA (09:03)
[2017-03-11] MEDS ORDERED: Insulin Regular, Human 100 Units/ML 3 ML Vial SUBCUT STA (09:05)
[2017-03-11] MEDS ORDERED: 50% Dextrose in Water 50 ML Syringe IVPUSH STA (09:05)
[2017-03-11] MEDS ORDERED: Sodium Polystyrene Sulfonate 15 GM/60 ML Susp 60 ML Bot PO ONE (09:07)
--- NOTE | 2017-03-11 09:39 | CT ---
CT abdomen and pelvis Technique: Multiple axial sections were obtained from above the dome of the diaphragm inferiorly to the pubic symphysis. Intravenous contrast not utilized. Oral contrast has been given. Comparison: Prior CT abdomen and pelvis exam dated 06/29/16. Findings: Mild fibrosis is seen within both lung bases. Noncontrast appearance of the liver appears within normal limits. Spleen appears normal. Adrenal glands show no nodule. Numerous cysts are seen within both kidneys which appear stable from prior exam. Small hyperdense cyst is noted within the right kidney which remains stable. Right ureter is dilated to the bladder. Questionable soft tissue abnormality within the bladder at this level. Both these findings are an interval change from previous study. Pancreas appears within normal limits. Gallbladder contains no calcified gallstones. Aortoiliac stent is seen within an abdominal aortic aneurysm. Inferior vena cava filter is also seen. No retroperitoneal adenopathy or mesenteric abnormalities are seen. Numerous diverticuli are seen throughout the colon which are prominent within the sigmoid region. Appendix is seen and appears normal. Artifact within the pelvis is seen secondary to left hip prosthesis. Degenerative change is noted throughout the lumbar spine. No free fluid is seen. No inflammatory change is seen within the abdomen or pelvis. Impression: 1. Incidental findings as noted above. No findings of appendicitis. 2. Dilated right ureter down to the bladder. Questionable soft tissue mass within the bladder at the UVJ possibly being the etiology of the right sided ureteral dilatation. These findings are an interval change from prior CT exam. Cystoscopy is recommended to further evaluate. 3. Other incidental findings as noted above. Diagnostic code #9
[2017-03-11] MEDS ORDERED: WATER IV ONE ×2 (10:00)
[2017-03-11] MEDS ORDERED: DEXTROSE 5% IV ONE ×2 (10:00)
[2017-03-11] MEDS ORDERED: SODIUM BICARBONATE IV ONE ×2 (10:00)
[2017-03-11 18:53] VITALS: BP 119/57
== END 2017-03-11 19:10 ==
LOC: JD.ED 06:53
DX: N32.9 Bladder disorder, unspecified (principal); N13.4 Hydroureter; E87.5 Hyperkalemia; I12.9 Hypertensive chronic kidney disease with stage 1 through stage 4 chronic kidney disease, or unspecified chronic kidney disease; N18.6 End stage renal disease; E11.22 Type 2 diabetes mellitus with diabetic chronic kidney disease; F17.210 Nicotine dependence, cigarettes, uncomplicated; E78.00 Pure hypercholesterolemia, unspecified; J44.9 Chronic obstructive pulmonary disease, unspecified; Z88.1 Allergy status to other antibiotic agents; Z88.5 Allergy status to narcotic agent; Z99.2 Dependence on renal dialysis; Z96.649 Presence of unspecified artificial hip joint; Z79.899 Other long term (current) drug therapy; Z79.01 Long term (current) use of anticoagulants
CPT/HCPCS: 36415; 74177; 80053; 81001; 83690; 85025; 96361; 96365; 96372; 96375; 99285; A9270; J0610; J1170; J1817; J2405; J7040; J7050; J7060; Q9963; Q9967; 99284